=== PATIENT | male | born 1960 | race Caucasian/White ===

== ENCOUNTER 2017-02-28 01:52 | Emergency (ER) | payer OTHER ==
[2017-02-28 01:54] VITALS: BP 140/81; TEMP 98
[2017-02-28 02:52] VITALS: PULSE 70
== END 2017-02-28 03:03 | disposition home or self-care (01) ==
LOC: COL.ER 01:52
DX: R04.0 Epistaxis (principal); Z85.818 Personal history of malignant neoplasm of other sites of lip, oral cavity, and pharynx; Z98.890 Other specified postprocedural states

== ENCOUNTER 2017-04-11 23:36 | Emergency (ER) | payer OTHER ==
[~2017-04-11] VITALS: Ht 188 cm; Wt 107.3 kg
[2017-04-11 23:42] VITALS: BP 105/58; PULSE 82; TEMP 98.5
== END 2017-04-12 00:53 | disposition home or self-care (01) ==
LOC: COL.ER 23:36
DX: Z43.1 Encounter for attention to gastrostomy (principal); C76.0 Malignant neoplasm of head, face and neck; I25.10 Atherosclerotic heart disease of native coronary artery without angina pectoris; Z95.5 Presence of coronary angioplasty implant and graft

== ENCOUNTER → 2018-11-03 | Outpatient (CLI) | payer OTHER | LOC: COL.RAD 08:15 | DX: R74.8 Abnormal levels of other serum enzymes (principal) ==

== ENCOUNTER → 2023-11-08 | Outpatient (CLI) | payer OTHER | LOC: ZCOL.LAB 16:01 | DX: J32.9 Chronic sinusitis, unspecified (principal) ==